=== PATIENT | female | born 1970 | race Caucasian/White ===

== ENCOUNTER 2017-08-06 13:16 | Emergency (ER) | payer OTHER ==
[~2017-08-06] VITALS: Ht 160 cm; Wt 52.2 kg
[~2017-08-06 13:16] MED LIST: ATIVAN2 M1; FIORICET 50-301 EACH; RESTORIL30 MG
== END 2017-08-06 19:42 | disposition home or self-care (01) ==
LOC: ER 13:16
DX: R10.31 Right lower quadrant pain (principal)

== ENCOUNTER → 2020-02-09 | Emergency (ER) | payer OTHER ==
[~2020-02-09] VITALS: Ht 157.5 cm; Wt 59.0 kg
== END | disposition left against medical advice (07) ==
LOC: ER 16:53
DX: R40.4 Transient alteration of awareness (principal); R23.0 Cyanosis; R06.89 Other abnormalities of breathing; R40.2411 Glasgow coma scale score 13-15, in the field [EMT or ambulance]; F32.89 Other specified depressive episodes; Z03.818 Encounter for observation for suspected exposure to other biological agents ruled out